=== PATIENT | female | born 1990 | race Caucasian/White ===

== ENCOUNTER → 2016-04-22 | Outpatient (CLI) | payer OTHER ==
[2016-04-22 15:57] LABS: ALT/SGPT 19 U/L (12-78); BLOOD UREA NITROGEN 13 mg/dl (7-18); BUN/CREATININE RATIO 16.3 (10-20); CALCIUM 8.7 mg/dl (8.5-10.1); CARBON DIOXIDE 23 mmol/L (21-32); CHLORIDE 100 mmol/L (98-107); CHOLESTEROL 220 mg/dl (0-200); CREATININE 0.81 mg/dl (0.60-1.20); GLUCOSE 277 mg/dl (70-99); POTASSIUM 4.3 mmol/L (3.5-5.1); SODIUM 135 mmol/L (136-145)
[2016-04-22 16:08] LABS: ALB/GLOB RATIO 0.8 (0.9-2); ALKALINE PHOSPHATASE 87 U/L (45-117); AST/SGOT 15 U/L (15-37); CHOLESTEROL/HDL RATIO 3.2; HDL CHOLESTEROL 68 mg/dl; LDL CHOLESTEROL CALCULATED 125 mg/dl; TRIGLYCERIDES 135 mg/dl (0-150); VERY LOW DENSITY LIPOPROT CALC 27 mg/dl
[2016-04-22 16:57] LABS: RATIO 131.7 mcg/mg (0-30.0)
[2016-04-23 06:27] LABS: ESTIMATED AVERAGE GLUCOSE 286 mg/dl; HA1C FLAG Normal (Normal)
== END | disposition home or self-care (01) ==
LOC: C.LAB1850 14:22
PROVIDERS: ATTEND Internal Medicine Endocrinology, Diabetes & Metabolism
DX: E03.9 Hypothyroidism, unspecified (principal); E06.3 Autoimmune thyroiditis; R80.9 Proteinuria, unspecified; F41.8 Other specified anxiety disorders; E55.9 Vitamin D deficiency, unspecified; E10.21 Type 1 diabetes mellitus with diabetic nephropathy; G47.00 Insomnia, unspecified; F50.9 Eating disorder, unspecified; E10.9 Type 1 diabetes mellitus without complications

== ENCOUNTER → 2016-08-09 | Outpatient (CLI) | payer OTHER ==
[2016-08-09 14:56] LABS: ESTIMATED AVERAGE GLUCOSE 301 mg/dl; HA1C FLAG Normal (Normal)
[2016-08-14 20:53] LABS: IGA SERUM 292 mg/dL (81-463); TIS TRANS IGA 2 U/mL (<4)
== END | disposition home or self-care (01) ==
LOC: C.LAB1850 11:50
PROVIDERS: ATTEND Internal Medicine Endocrinology, Diabetes & Metabolism
DX: E03.9 Hypothyroidism, unspecified (principal); E06.3 Autoimmune thyroiditis; R80.9 Proteinuria, unspecified; F41.8 Other specified anxiety disorders; E55.9 Vitamin D deficiency, unspecified; E10.21 Type 1 diabetes mellitus with diabetic nephropathy; G47.00 Insomnia, unspecified; F50.9 Eating disorder, unspecified

== ENCOUNTER → 2016-10-21 | Outpatient (CLI) | payer OTHER ==
[2016-10-22 06:52] LABS: ESTIMATED AVERAGE GLUCOSE 309 mg/dl; HA1C FLAG Normal (Normal)
== END | disposition home or self-care (01) ==
LOC: C.LAB1850 14:38
PROVIDERS: ATTEND Internal Medicine Endocrinology, Diabetes & Metabolism
DX: E03.9 Hypothyroidism, unspecified (principal); E55.9 Vitamin D deficiency, unspecified; E10.9 Type 1 diabetes mellitus without complications

== ENCOUNTER → 2017-04-07 | Outpatient (CLI) | payer OTHER ==
[2017-04-07 17:02] LABS: ALBUMIN 3.2 gm/dl (3.4-5.0); ALT/SGPT 49 U/L (12-78); BLOOD UREA NITROGEN 8 mg/dl (7-18); CALCIUM 8.3 mg/dl (8.5-10.1); CARBON DIOXIDE 27 mmol/L (21-32); CHOLESTEROL 155 mg/dl (0-200); CREATININE 0.83 mg/dl (0.60-1.20); GLUCOSE 165 mg/dl (70-99); POTASSIUM 4.3 mmol/L (3.5-5.1); SODIUM 138 mmol/L (136-145)
[2017-04-07 17:11] LABS: CREATININE RANDOM URINE 41.7 mg/dl
[2017-04-07 17:12] LABS: ALKALINE PHOSPHATASE 89 U/L (45-117); AST/SGOT 58 U/L (15-37); LDL CHOLESTEROL CALCULATED 61 mg/dl; TOTAL PROTEIN 7.2 gm/dl (6.4-8.2)
[2017-04-08 05:42] LABS: HEMOGLOBIN A1C 12.3 % (4.5-5.6)
== END | disposition home or self-care (01) ==
LOC: C.LAB1850 14:48
PROVIDERS: ATTEND Internal Medicine Endocrinology, Diabetes & Metabolism
DX: E03.9 Hypothyroidism, unspecified (principal); E06.3 Autoimmune thyroiditis; R80.9 Proteinuria, unspecified; F41.8 Other specified anxiety disorders; E55.9 Vitamin D deficiency, unspecified; E10.21 Type 1 diabetes mellitus with diabetic nephropathy; G47.00 Insomnia, unspecified; F50.9 Eating disorder, unspecified; E10.65 Type 1 diabetes mellitus with hyperglycemia; E10.3299 Type 1 diabetes mellitus with mild nonproliferative diabetic retinopathy without macular edema, unspecified eye

== ENCOUNTER → 2017-05-30 | Outpatient (CLI) | payer OTHER | END | disposition home or self-care (01) | LOC: C.LAB1850 16:27 | PROVIDERS: ATTEND Internal Medicine Endocrinology, Diabetes & Metabolism | DX: E03.9 Hypothyroidism, unspecified (principal); E55.9 Vitamin D deficiency, unspecified; E10.8 Type 1 diabetes mellitus with unspecified complications ==

== ENCOUNTER 2024-11-13 07:14 | Observation (INO) ==
--- NOTE | 2024-11-13 07:34 | Emergency Department Note ---
Impression & Plan DKA (diabetic ketoacidosis), Dehydration, Leukocytosis ED Provider Note NAME: HARLEY SOMERS AGE: 34 SEX: F : 1990 ARRIVES VIA: Ambulance INFORMANT: [Patient][EMS] ED PROVIDER(S): [Gaurav Macdonald MD] CHIEF COMPLAINT: Hyperglycemia HISTORY OF PRESENT ILLNESS: The patient is a 34-year-old female who presents to the ER with high sugar. She has a CMG monitor as well as an insulin pump. The patient states that she was feeling fine until around 10 PM yesterday when she began to notice some back and shoulder pain. She began feeling thirsty and noticed some increased urination. She states that all of these complaints are typical signs of a high blood sugar. Her sugar was recording at over 500. The patient did change out her insulin pump needle 2-3 times overnight but it has made no difference. She has tried to compensate with extra insulin, nothing has changed. She feels extremely thirsty. She believes she may be in early DKA. No fever, no cough or congestion. No abdominal pain. She did vomit once and feels nauseated. No diarrhea. No urinary complaints other than the frequency. PMHx/PSHx/Social Hx: See Below PHYSICAL EXAM: GENERAL: Patient is in no acute distress. Face is flushed. HEENT: No acute trauma, normocephalic atraumatic, mucous membranes markedly dry, no nasal congestion. NECK: No stridor, no adenopathy, no meningismus, trachea is midline. LUNGS: Clear to auscultation bilaterally, no wheeze, no rhonchi, breath sounds equal. HEART: Without murmurs gallops or rubs, regular rate and rhythm. ABDOMEN: Soft, nontender, no peritonitis. EXTREMITIES: No cyanosis, full range of motion of all the joints without pain or difficulty. NEUROLOGIC: Oriented x 3, no acute motor or sensory deficits, no focal weakness. SKIN: No jaundice, no diaphoresis. DIFFERENTIAL DIAGNOSIS: Dehydration, electrolyte imbalance, DKA, UTI, among others. EMERGENCY DEPARTMENT PROCEDURES: MEDICAL DECISION MAKING: There is a moderate leukocytosis, this certainly could be consistent with infection or just the stress of her current presentation. There is a normal hemoglobin and platelet count. No bandemia. VBG does show acidosis. There was no CO2 retention. Renal panel testing shows hyperglycemia as well as acidosis. Sodium was low. Bilirubin was mildly elevated although the remaining liver enzymes were unremarkable. TSH was high but the T4 was normal. testing was negative. Urinalysis shows glucose and ketones, no infection. Chest x-ray does not show findings of pneumonia. ECG shows a sinus rhythm, no acute ischemia. On exam, the patient was quite dehydrated. At times, she was borderline hypotensive. She was not febrile, she was doing well maintaining her airway. She was mentating well. The patient received IV saline, 2 L. She was eventually placed on an insulin drip. She received IV Zofran for nausea, IV morphine for pain, she was given IV Toradol for pain, IV Tylenol for pain. Patient is in diabetic ketoacidosis, the cause for the DKA though is unclear. No source for infection has been found. Certainly, there may have been some malfunction of her equipment leading to the high sugar. For now, admission, observation, further IV hydration as well as IV insulin therapy is warranted. I spoke with the patient and case management, the on-call hospitalist was consulted. Prior/Outside records/notes reviewed: Today's EMS notes describing her presentation and transport to this hospital. ECG per my interpretation: Indication was electrolyte imbalance. The ECG shows a normal sinus rhythm with a rate of 81. There is no ST elevation, no PVCs. There is some nonspecific ST change. QTc is 432. Continuous Cardiac Monitoring per my interpretation: An order was placed for continuous cardiac monitoring. The monitor shows a rate of 88 with normal sinus rhythm. Imaging/x-ray results per my interpretation: Chest x-ray does not show CHF or pneumonia. Chronic Medical/Social conditions affecting care: History of diabetes. Care/Management discussed with: Case management, the on-call hospitalist. Level of care consideration(s): After review of the information above and other included data: --I believe the patient requires escalation of care to admission Critical Care Note: I have personally spent 47 minutes of critical care time in the direct management of this patient. This includes bedside care, interpretation of diagnostic studies, and testing, discussion with consultants, patient, and family members, and other required patient management activities. This 47 minutes is in excess of all separately billable procedures. DISPOSITION: Admission Past Med/Surg History Problem List (Updated 11/13/24 @ 15:16 by Gaurav Macdonald MD) Leukocytosis (Acute) Dehydration (Acute) DKA (diabetic ketoacidosis) (Acute) Leukocytosis Back pain Tinea versicolor Situational stress Depression with anxiety Diabetes type 1, controlled Dyslipidemia Dysphagia Abdominal pain Diarrhea Gastroparesis Situational stress Dysesthesia Diabetic peripheral neuropathy associated with type 1 diabetes mellitus Proliferative diabetic retinopathy associated with type 1 diabetes mellitus Hypothyroidism (Acute) Vitamin D deficiency (Acute) Medical History Low iron Hx iron infusion History of UTI severe Jan 2023 IBS (irritable bowel syndrome) PTSD (post-traumatic stress disorder) Asthma flared by damp weather History of diabetic ketoacidosis History of smoking Surgical History History of esophagogastroduodenoscopy (EGD) with dilation. 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 Had to go up both groins, plan was only for one during procedure and heart rate went up to 250. Unsure further details. S/P eye surgery multiple - both eyes. S/P section Hx of cholecystectomy Family History Brother Diabetes Father Diabetes Myocardial infarction Mother Breast cancer Denies family history of Ovarian cancer Prostate cancer Colorectal cancer Social History Smoking Status: Current every day smoker Tobacco Type: Cigarettes Age Started Using Tobacco: 19; Age Quit Using Tobacco: 28; packs per day: 0; Cigarettes Per Day: 5 cigs per day/advised npo; Second Hand Exposure: No; Do You Dip or Chew Tobacco: No; Hx Alcohol Use: No Hx Substance Use: No Preferred Language: Bengali Communication Ability: Effective Visual Impairment: Limited Hearing Ability: Normal Brake Lining Curer Required: No Beliefs That Will Affect Care: None marital status: Single Current Living Situation: Family Current Living Situation Comment: daughter and puppy current occupational status: unemployed How many Children do You have: 1 Feels Safe at Home: Yes Childhood Exposure to Second-Hand Smoke: No Diet: regular Dental Care, Regularly: No Physical Activity Frequency: Daily Seatbelt Use: sometimes Sunscreen Use: Yes Assistive Devices: Glasses Allergies Allergies Allergy/AdvReac Type Severity Reaction Status Date / Time strawberry Allergy Unknown break out Verified 11/03/24 11:00 in hives Sulfa (Sulfonamide AdvReac Severe n/v - Verified 11/03/24 11:00 Antibiotics) ended up in the icu. amoxicillin AdvReac Unknown n/v. Verified 11/03/24 11:00 Home Meds Home Medications Medication Instructions Recorded Confirmed brimonidine 0.2 % eye drops 1 drp ophthalmic (eye) HS PRN eye 12/09/22 11/13/24 pressure timolol maleate 0.5 % eye drops 1 drp ophthalmic (eye) DAILY 12/09/22 11/13/24 glucagon HCl 1 mg solution for 0 mg subcut UD PRN hypoglycemia 02/07/23 11/13/24 injection (Glucagon (HCl) Emergency Kit) levothyroxine 300 mcg tablet 375 mcg PO DAILY 07/30/24 11/13/24 citalopram 20 mg tablet 20 mg PO DAILY 11/13/24 11/13/24 selenium sulfide 1 % shampoo 1 applic topical DAILY PRN Itching 11/13/24 11/13/24 (Selsun Blue) Previous Rx's Medication Instructions Recorded Dexcom G6 Fountain Operator #1 ea 12/14/20 (blood-glucose,aluminum siding mechanic,cont) blood sugar diagnostic (Contour #100 ea 02/06/22 Next Test Strips) cholecalciferol (vitamin D3) 1,250 50,000 unit PO DAILY #30 tabs 01/31/23 mcg (50,000 unit) tablet acetone (urine) test (Ketostix #25 ea 07/25/23 strips) ferrous sulfate 325 mg (65 mg 325 mg PO DAILY #30 tabs 11/11/23 iron) tablet Dexcom G6 Sensor (blood-glucose #9 ea 03/02/24 sensor) Dexcom G6 Transmitter #1 ea 03/02/24 (blood-glucose transmitter) insulin lispro 100 unit/mL 100 unit continuous subcutaneous 04/22/24 subcutaneous solution infusion DAILY #90 mL Results & Data (ED) Vital Signs Vital Signs - 24 hr 11/13/24 07:28 11/13/24 07:28 11/13/24 07:37 Temperature 36.5 C 36.5 C Temperature Source Oral Oral Pulse Rate 82 82 Pulse Rate [Apical] 82 Pulse Rate from SpO2 Sensor Pulse Rhythm Regular Pulse Rhythm [Apical] Respiratory Rate 19 17 19 Respiratory Effort / Characteristics Non-Labored Spontaneous Non-Labored Spontaneous Respiratory Depth Normal Normal Respiratory Pattern Regular Blood Pressure 93/54 L Blood Pressure [Right Arm] 93/54 L Blood Pressure Mean 67 Blood Pressure Mean [Right Arm] 67 Blood Pressure Position Semi-fowlers Blood Pressure Position [Right Arm] Semi-fowlers Pulse Oximetry 100 100 100 Oxygen Delivery Method Room Air Room Air Room Air Sepsis Recent Fever Within 48 Hours No Sepsis New/Unexplained Change in Mental Status N/A Sepsis Action Taken by Nursing No Action Required 11/13/24 08:03 11/13/24 08:13 11/13/24 08:18 Temperature Temperature Source Pulse Rate 93 H 102 H 93 H Pulse Rate [Apical] Pulse Rate from SpO2 Sensor 92 H Pulse Rhythm Pulse Rhythm [Apical] Respiratory Rate 16 19 Respiratory Effort / Characteristics Respiratory Depth Respiratory Pattern Blood Pressure Blood Pressure [Right Arm] Blood Pressure Mean Blood Pressure Mean [Right Arm] Blood Pressure Position Blood Pressure Position [Right Arm] Pulse Oximetry 100 Oxygen Delivery Method Sepsis Recent Fever Within 48 Hours Sepsis New/Unexplained Change in Mental Status Sepsis Action Taken by Nursing 11/13/24 08:20 11/13/24 08:20 11/13/24 08:20 Temperature Temperature Source Pulse Rate Pulse Rate [Apical] Pulse Rate from SpO2 Sensor Pulse Rhythm Pulse Rhythm [Apical] Respiratory Rate Respiratory Effort / Characteristics Respiratory Depth Respiratory Pattern Blood Pressure 112/70 112/70 112/70 Blood Pressure [Right Arm] Blood Pressure Mean 83 83 83 Blood Pressure Mean [Right Arm] Blood Pressure Position Blood Pressure Position [Right Arm] Pulse Oximetry Oxygen Delivery Method Sepsis Recent Fever Within 48 Hours Sepsis New/Unexplained Change in Mental Status Sepsis Action Taken by Nursing 11/13/24 08:20 11/13/24 08:21 11/13/24 08:33 Temperature Temperature Source Pulse Rate 87 109 H Pulse Rate [Apical] Pulse Rate from SpO2 Sensor Pulse Rhythm Pulse Rhythm [Apical] Respiratory Rate 23 16 Respiratory Effort / Characteristics Respiratory Depth Respiratory Pattern Blood Pressure 112/70 Blood Pressure [Right Arm] Blood Pressure Mean 83 Blood Pressure Mean [Right Arm] Blood Pressure Position Blood Pressure Position [Right Arm] Pulse Oximetry 100 Oxygen Delivery Method Sepsis Recent Fever Within 48 Hours Sepsis New/Unexplained Change in Mental Status Sepsis Action Taken by Nursing 11/13/24 09:03 11/13/24 09:21 11/13/24 09:33 Temperature Temperature Source Pulse Rate 85 80 Pulse Rate [Apical] 83 Pulse Rate from SpO2 Sensor 85 80 Pulse Rhythm Pulse Rhythm [Apical] Regular Respiratory Rate 21 18 23 Respiratory Effort / Characteristics Non-Labored Spontaneous Respiratory Depth Normal Respiratory Pattern Regular Blood Pressure 93/49 L 102/42 L Blood Pressure [Right Arm] 95/47 L Blood Pressure Mean 63 62 Blood Pressure Mean [Right Arm] 63 Blood Pressure Position Blood Pressure Position [Right Arm] Pulse Oximetry 100 92 100 Oxygen Delivery Method Room Air Sepsis Recent Fever Within 48 Hours Sepsis New/Unexplained Change in Mental Status Sepsis Action Taken by [facility] Medications Current Medication List: was personally reviewed by me Laboratory Data Attestation: I reviewed the patient's lab results. 11/13/24 07:28 11/13/24 12:50 Lab Results 11/13/24 11/13/24 11/13/24 Range/Units 07:20 07:28 08:38 WBC 16.98 H (4.8-10.8) K/ul RBC 4.88 (4.20-5.40) M/uL Hgb 14.1 (12.0-16.0) g/dl Hct 42.2 (37.0-47.0) % MCV 86.5 (80.0-100.0) fL MCH 28.9 (25.0-34.0) pg MCHC 33.4 (32.0-36.0) g/dL RDW Std Deviation 39.6 (36.4-46.3) fL RDW Coeff of Josep 12.6 (11.5-14.5) % Plt Count 289 (130-400) K/uL MPV 10.8 (9.4-12.4) fL Immature Gran % (Auto) 0.7 % Neut % (Auto) 76.8 % Lymph % (Auto) 14.5 % [place] % (Auto) 6.3 % Eos % (Auto) 0.8 % Baso % (Auto) 0.9 % Neut # (Auto) 13.04 H (1.40-6.50) K/uL Lymph # (Auto) 2.46 (1.20-3.40) K/uL [place] # (Auto) 1.07 H (0.11-0.59) K/uL Eos # (Auto) 0.14 (0.00-0.50) K/uL Baso # (Auto) 0.15 (0.00-0.20) K/uL Immature Gran # (Auto) 0.12 (0.01-0.20) K/uL VBG pH 7.22 L (7.36-7.41) VBG pCO2 29 L (38-50) mmHg VBG pO2 40 mmHg VBG HCO3 12 mmol/L VBG O2 Saturation 60.6 % VBG Base Excess -14.4 mEq/L Sodium 127 L (136-145) mmol/L Potassium 4.7 (3.5-5.1) mmol/L Chloride 92 L (98-107) mmol/L Carbon Dioxide 14 L (21-32) mmol/L Anion Gap 21 H (3-11) BUN 22 (6-23) mg/dl Creatinine 1.13 (0.6-1.2) mg/dl Est Cr Clr Drug Dosing 68.3 ml/min eGFR 65.88 BUN/Creatinine Ratio 19.5 (10-20) Glucose 540 H* (70-99(Fasting)) mg/dl POC Glucose 529 H* 488 H* (70-99) mg/dl Calcium 9.5 (8.6-10.3) mg/dl Magnesium 1.9 (1.7-2.4) mg/dl Total Bilirubin 1.5 H (0.2-1.0) mg/dl AST 12 L (13-39) U/L ALT 10 (7-52) U/L Alkaline Phosphatase 96 (34-104) U/L Total Protein 7.7 (6.0-8.3) gm/dl Albumin 4.1 (3.4-5.0) gm/dl Globulin 3.6 (2.5-4.0) gm/dl Albumin/Globulin Ratio 1.1 (0.9-2) TSH 7.022 H (0.300-4.500) uIu/ml Free T4 0.71 (0.61-1.60) ng/dl HCG, Qual Negative (Negative) 11/13/24 Range/Units 09:09 WBC (4.8-10.8) K/ul RBC (4.20-5.40) M/uL Hgb (12.0-16.0) g/dl Hct (37.0-47.0) % MCV (80.0-100.0) fL MCH (25.0-34.0) pg MCHC (32.0-36.0) g/dL RDW Std Deviation (36.4-46.3) fL RDW Coeff of Josep (11.5-14.5) % Plt Count (130-400) K/uL MPV (9.4-12.4) fL Immature Gran % (Auto) % Neut % (Auto) % Lymph % (Auto) % [place] % (Auto) % Eos % (Auto) % Baso % (Auto) % Neut # (Auto) (1.40-6.50) K/uL Lymph # (Auto) (1.20-3.40) K/uL [place] # (Auto) (0.11-0.59) K/uL Eos # (Auto) (0.00-0.50) K/uL Baso # (Auto) (0.00-0.20) K/uL Immature Gran # (Auto) (0.01-0.20) K/uL VBG pH (7.36-7.41) VBG pCO2 (38-50) mmHg VBG pO2 mmHg VBG HCO3 mmol/L VBG O2 Saturation % VBG Base Excess mEq/L Sodium (136-145) mmol/L Potassium (3.5-5.1) mmol/L Chloride (98-107) mmol/L Carbon Dioxide (21-32) mmol/L Anion Gap (3-11) BUN (6-23) mg/dl Creatinine (0.6-1.2) mg/dl Est Cr Clr Drug Dosing ml/min eGFR BUN/Creatinine Ratio (10-20) Glucose (70-99(Fasting)) mg/dl POC Glucose 471 H* (70-99) mg/dl Calcium (8.6-10.3) mg/dl Magnesium (1.7-2.4) mg/dl Total Bilirubin (0.2-1.0) mg/dl AST (13-39) U/L ALT (7-52) U/L Alkaline Phosphatase (34-104) U/L Total Protein (6.0-8.3) gm/dl Albumin (3.4-5.0) gm/dl Globulin (2.5-4.0) gm/dl Albumin/Globulin Ratio (0.9-2) TSH (0.300-4.500) uIu/ml Free T4 (0.61-1.60) ng/dl HCG, Qual (Negative) Administered Medications Insulin Human Regular 250 (units/ Sodium Chloride) 250 mls @ 3.4 mls/hr IV .Q24H [facility]; Protocol Stop: 12/13/24 08:59 Last Titration: 11/13/24 13:30 Dose: 3.4 units/hr, 3.4 mls/hr Documented By: MIKAL Co-signed By: NANNETTE Titration: 11/13/24 12:58 Dose: 4.3 units/hr, 4.3 mls/hr Documented By: MIKAL Co-signed By: NANNETTE Titration: 11/13/24 12:28 Dose: 0 units/hr, 0 mls/hr Documented By: MIKAL Co-signed By: NANNETTE Titration: 11/13/24 11:29 Dose: 7.1 units/hr, 7.1 mls/hr Documented By: MIKAL Co-signed By: NANNETTE Titration: 11/13/24 10:29 Dose: 8.9 units/hr, 8.9 mls/hr Documented By: MIKAL Co-signed By: NANNETTE Admin: 11/13/24 09:11 Dose: 7.4 units/hr, 7.4 mls/hr Documented By: BEATRIZ Co-signed By: WALLY Potassium Chloride 20 meq/ (Dextrose/Sodium Chloride) 1,010 mls @ 125 mls/hr IV .Q8H5M [facility] Stop: 11/16/24 13:29 Last Admin: 11/13/24 14:35 Dose: 125 mls/hr Documented By: MIKAL Morphine Sulfate (Morphine Sulfate 2 Mg/Ml Carp) 2 mg IV Q15M PRN PRN Reason: Pain Stop: 11/27/24 08:59 Last Admin: 11/13/24 09:20 Dose: 2 mg Documented By: ECS Discontinued Medications Sodium Chloride (Nss) 1,000 mls @ 999 mls/hr IV .Q1H1M ONE Stop: 11/13/24 08:31 Last Infusion: 11/13/24 09:16 Dose: Infused Documented By: Admin: 11/13/24 07:44 Dose: 999 mls/hr Documented By: LORIN Sodium Chloride (Nss) 1,000 mls @ 999 mls/hr IV .Q1H1M ONE Stop: 11/13/24 08:31 Last Infusion: 11/13/24 09:16 Dose: Infused Documented By: Admin: 11/13/24 07:44 Dose: 999 mls/hr Documented By: LOIRN Acetaminophen (Ofirmev) 1,000 mg in 100 mls @ 400 mls/hr IV NOW STA Stop: 11/13/24 08:30 Last Infusion: 11/13/24 09:02 Dose: Infused Documented By: Admin: 11/13/24 08:23 Dose: 400 mls/hr Documented By: BEATRIZ Potassium Chloride/Sodium Chloride (Normal Saline W/20 Meq Kcl) 20 meq in 1,000 mls @ 250 mls/hr IV .Q4H MARILY Stop: 11/16/24 12:59 Last Infusion: 11/13/24 14:35 Dose: Infused Documented By: Admin: 11/13/24 13:06 Dose: 250 mls/hr Documented By: MIKAL Insulin Human Regular (Novolin-R Bolus From Bag) 7.4 units IV ONE ONE Stop: 11/13/24 08:31 Last Admin: 11/13/24 09:15 Dose: 7.4 units Documented By: BEATRIZ Co-signed By: ECS Insulin Pump (Dc Home Insulin Pump) 1 each N/A NOW STA Stop: 11/13/24 08:24 Last Admin: 11/13/24 08:30 Dose: 1 each Documented By: BEATRIZ Ketorolac Tromethamine (Ketorolac Tromethamine 15 Mg/Ml Vial) 10 mg IV NOW ONE Stop: 11/13/24 08:16 Last Admin: 11/13/24 08:23 Dose: 10 mg Documented By: BEATRIZ Miscellaneous (Stat Iv Infusion Titration Per Protocol) 1 each N/A NOW STA Stop: 11/13/24 08:24 Last Admin: 11/13/24 09:16 Dose: Not Given Documented By: BEATRIZ Morphine Sulfate (Morphine Sulfate 2 Mg/Ml Carp) 2 mg IV NOW STA Stop: 11/13/24 08:16 Last Admin: 11/13/24 08:23 Dose: 2 mg Documented By: BEATRIZ Ondansetron HCl (Ondansetron Inj 2 Mg/Ml 2 Ml Vial) 4 mg IV NOW STA Stop: 11/13/24 07:32 Last Admin: 11/13/24 07:44 Dose: 4 mg Documented By: LORIN Imaging Data Radiologist's Impression: Chest X-Ray 11/13/24 07:31 Clinical History: Weakness Technique: A frontal view of the chest was obtained Comparison is made to the prior examination dated 01/22/2023 Findings: There are no definite pulmonary infiltrates. The heart size is within normal limits. No pleural effusion or pneumothorax is seen. There is no definite pulmonary nodule. No fracture is noted. No foreign body is seen Impression: No active disease Electronically signed by Marques Valenzuela 11-13-2024 08:20 AM Discharge Plan Visit Data Chief Complaint: Hyperglycemia Stated Complaint: HYPERGLYCEMIA ED Provider: Gaurav Macdonald Discharge Problem: DKA (diabetic ketoacidosis), Dehydration, Leukocytosis Patient Disposition: Admitted As Inpatient Condition: Serious Discharge Instructions Interventions: ED Discharge Assessment Last Done: 11/13/24 12:36 Discharge Problem: DKA (diabetic ketoacidosis) Qualifiers: Diabetes mellitus type: type 1 Diabetes mellitus complication detail: without coma Qualified Code(s): E10.10 - Type 1 diabetes mellitus with ketoacidosis without coma Leukocytosis Qualifiers: Leukocytosis type: unspecified Qualified Code(s): D72.829 - Elevated white blood cell count, unspecified
[2024-11-13 07:37] VITALS: TEMP 97.7
[2024-11-13 07:38] LABS: Base Excess VBG -14.4 mEq/L; HCO3 VBG 12 mmol/L; Oxygen Saturation VBG 60.6 %; PCO2 VBG 29 mmHg (38-50); PO2 VBG 40 mmHg; pH VBG 7.22 (7.36-7.41)
[2024-11-13 07:42] LABS: Hematocrit (blood only) 42.2 % (37.0-47.0); Hemoglobin 14.1 g/dl (12.0-16.0); Immature Granulocytes # (auto) 0.12 K/uL (0.01-0.20); Immature Granulocytes % (auto) 0.7 %; Mean Corpuscular Hemoglobin 28.9 pg (25.0-34.0); Mean Corpuscular Volume 86.5 fL (80.0-100.0); Platelet Count 289 K/uL (130-400); RDW Standard Deviation 39.6 fL (36.4-46.3); Red Blood Count 4.88 M/uL (4.20-5.40); White Blood Count 16.98 K/ul (4.8-10.8)
[2024-11-13] MEDS: SODIUM CHLORIDE 0.9% 1,000 ML IV ONE ×2 (07:44)
[2024-11-13] MEDS: ONDANSETRON INJ 2 MG/ML 2 ML VIAL IV STA (07:44)
[2024-11-13 07:57] LABS: Pregnancy Test, Serum Negative (Negative)
[2024-11-13 08:05] LABS: Alanine Aminotransferase 10.0 U/L (7-52); Albumin Globulin Ratio 1.1 (0.9-2); Alkaline Phosphatase 96.0 U/L (34-104); Anion Gap 21.0 (3-11); Bilirubin,Total 1.5 mg/dl (0.2-1.0); Blood Urea Nitrogen 22.0 mg/dl (6-23); Calcium 9.5 mg/dl (8.6-10.3); Carbon Dioxide 14.0 mmol/L (21-32); Chloride 92.0 mmol/L (98-107); Creatinine Clr Calc Pharmacy 68.3 ml/min; Globulin 3.6 gm/dl (2.5-4.0); Glucose 540.0 mg/dl (70-99(Fasting)); Magnesium 1.9 mg/dl (1.7-2.4); Potassium 4.7 mmol/L (3.5-5.1); Sodium 127.0 mmol/L (136-145); Total Protein 7.7 gm/dl (6.0-8.3)
[2024-11-13 08:16] LABS: Thyroid Stimulating Hormone 7.022 uIu/ml (0.300-4.500)
--- NOTE | 2024-11-13 08:20 | XRay Report ---
Clinical History: Weakness Technique: A frontal view of the chest was obtained Comparison is made to the prior examination dated 01/22/2023 Findings: There are no definite pulmonary infiltrates. The heart size is within normal limits. No pleural effusion or pneumothorax is seen. There is no definite pulmonary nodule. No fracture is noted. No foreign body is seen Impression: No active disease Electronically signed by Marques Valenzuela 11-13-2024 08:20 AM
[2024-11-13] MEDS ORDERED: GLUCAGON FOR INJ 1 MG VIAL SQ PRN (08:23)
[2024-11-13] MEDS: MoRPHine SULFATE 2 MG/ML CARP IV STA (08:23)
[2024-11-13] MEDS: KETOROLAC TROMETHAMINE 15 MG/ML VIAL IV ONE (08:23)
[2024-11-13] MEDS ORDERED: CARBOHYDRATES FOR HYPOGLYCEMIA PO PRN (08:23)
[2024-11-13] MEDS: ACETAMINOPHEN 1,000 MG/100 ML VIAL IV STA (08:23)
[2024-11-13] MEDS ORDERED: GLUCOSE 40% GEL 15 GM TUBE PO PRN (08:23)
[2024-11-13] MEDS ORDERED: GLUCOSE 10 TAB/TUBE PO PRN (08:23)
[2024-11-13] MEDS: DC HOME INSULIN PUMP STA (08:30)
[2024-11-13] MEDS ORDERED: INSULIN REGULAR 250 UNITS in SODIUM CHLORIDE 0.9% 247.5 ML IV SCH (08:30)
[2024-11-13] MEDS: INSULIN REGULAR 250 UNITS in SODIUM CHLORIDE 0.9% 247.5 ML IV SCH (09:11)
[2024-11-13] MEDS: NovoLIN-R BOLUS FROM BAG IV ONE (09:15)
[2024-11-13] MEDS: STAT IV Infusion **Titration per Protocol STA (09:16)
[2024-11-13] MEDS: MoRPHine SULFATE 2 MG/ML CARP IV PRN (09:20)
--- NOTE | 2024-11-13 10:04 | History & Physical Report ---
Date of Service November 13, 2024 Assessment & Plan (1) Diabetes type 1, controlled: (2) Hypothyroidism: (3) Back pain: (4) DKA (diabetic ketoacidosis): (5) Leukocytosis: Plan Patient is a 34 yo F with history of T1DM who presents into the ED for signs of DKA. Patient reports that she was fine last night until around 10pm last night when she got back and shoulder pain. Patient says the back and shoulder pain is an early sign that her blood sugar is high. She was also feeling thirsty with an increase in urination. Patient said she changed the insulin pump needle 2-3x overnight and tried to give herself more insulin, to no effect. Patient threw up 1 time last night but hasn't since. At time of visit (11/13), patient still has the pain in the back of her neck, shoulder blades, and down her entire back. She rates the pain an 8/10. Patient said the only thing she ate last night was cottage cheese. She said she doesn't feel hungry, but has always had that lack of appetite. Patient sees Dr. Pham for her T1DM. Patient admits to still urinating a lot, and that her urine is cloudy/yellow. Patient denies chest pain, abdominal pain, fever, and diarrhea. DKA/T1DM -11/13 glucose is 540 -11/13 VBG is 7.22 -Insulin bolus administered in ER -Insulin drip 7.4 units/hr with NSS. -Once glucose goal is <250 then reduce IV insulin to 0.05units/kg/hr -NSS 250ml/hr with 20mEq K per liter -Serum glucose range is 150-200 -Check BMP, venous pH, phosphorus, glucose every 4 hours -Ordered CBC w/ diff and A1c for the AM -Hypoglycemia protocol also in place * dextrose 50% 25-50mL * Glucagon 1mg SQ * Carbohydrates 15-30mg * Glucose chew table tablet (4-8 tabs) Hypothyroidism -Continue home levothyroxine 375mg Back Pain -Patient has general back pain, back of the neck and shoulder blades -ER gave morphine 2mg Q15 minutes PRN. -Will give tylenol 650mg PRN for mild pain -Will continue Q15m morphine for severe pain. Leukocytosis -WBC is 16.98. But most likely due to the stress of the DKA -Will continue to monitor History of Present Illness Chief Complaint: DKA Primary Care Provider: MITCHELL Valdez Patient is a 34 yo F who presents into the ED for signs of DKA. Patient reports that she was fine last night until around 10pm last night when she got back and shoulder pain. Patient says the back and shoulder pain is an early sign that her blood sugar is high. She was also feeling thirsty with an increase in urination. Patient said she changed the insulin pump needle 2-3x overnight and tried to give herself more insulin, to no effect. Patient threw up 1 time last night but hasnt since. At time of visit patient still has the pain in the back of her neck, shoulder blades, and down her entire back. She rates the pain an 8/10. Patient said the only thing she ate last night was cottage cheese. She said she doesnt feel hungry, but has always had that lack of appetite. Patient admits to still peeing a lot, and that her urine is cloudy/yellow. Patient denies chest pain, abdominal pain, fever, and diarrhea. Allergies Allergy/AdvReac Type Severity Reaction Status Date / Time strawberry Allergy Unknown break out Verified 11/03/24 11:00 in hives Sulfa (Sulfonamide AdvReac Severe n/v - Verified 11/03/24 11:00 Antibiotics) ended up in the icu. amoxicillin AdvReac Unknown n/v. Verified 11/03/24 11:00 Home Medications Medication Instructions Recorded Confirmed Type Dexcom G6 Barrel Washer #1 ea 12/14/20 11/03/24 Rx (blood-glucose,store receiver,cont) blood sugar diagnostic (Contour #100 ea 02/06/22 11/03/24 Rx Next Test Strips) brimonidine 0.2 % eye drops 1 drp ophthalmic (eye) HS PRN eye 12/09/22 11/13/24 History pressure timolol maleate 0.5 % eye drops 1 drp ophthalmic (eye) DAILY 12/09/22 11/13/24 History cholecalciferol (vitamin D3) 1,250 50,000 unit PO DAILY #30 tabs 01/31/23 11/13/24 Rx mcg (50,000 unit) tablet glucagon HCl 1 mg solution for 0 mg subcut UD PRN hypoglycemia 02/07/23 11/13/24 History injection (Glucagon (HCl) Emergency Kit) acetone (urine) test (Ketostix #25 ea 07/25/23 11/03/24 Rx strips) ferrous sulfate 325 mg (65 mg 325 mg PO DAILY #30 tabs 11/11/23 11/13/24 Rx iron) tablet Dexcom G6 Sensor (blood-glucose #9 ea 03/02/24 11/03/24 Rx sensor) Dexcom G6 Transmitter #1 ea 03/02/24 11/03/24 Rx (blood-glucose transmitter) insulin lispro 100 unit/mL 100 unit continuous subcutaneous 04/22/24 11/13/24 Rx subcutaneous solution infusion DAILY #90 mL levothyroxine 300 mcg tablet 375 mcg PO DAILY 07/30/24 11/13/24 History citalopram 20 mg tablet 20 mg PO DAILY 11/13/24 11/13/24 History selenium sulfide 1 % shampoo 1 applic topical DAILY PRN Itching 11/13/24 11/13/24 History (Virginia Hoffmann) Past Med/Surg History Problem List (Updated 11/13/24 @ 15:16 by Gaurav Macdonald MD) Leukocytosis (Acute) Dehydration (Acute) DKA (diabetic ketoacidosis) (Acute) Leukocytosis Back pain Tinea versicolor Situational stress Depression with anxiety Diabetes type 1, controlled Dyslipidemia Dysphagia Abdominal pain Diarrhea Gastroparesis Situational stress Dysesthesia Diabetic peripheral neuropathy associated with type 1 diabetes mellitus Proliferative diabetic retinopathy associated with type 1 diabetes mellitus Hypothyroidism (Acute) Vitamin D deficiency (Acute) Medical History Low iron Hx iron infusion History of UTI severe Jan 2023 IBS (irritable bowel syndrome) PTSD (post-traumatic stress disorder) Asthma flared by damp weather History of diabetic ketoacidosis History of smoking Surgical History History of esophagogastroduodenoscopy (EGD) with dilation. 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 Had to go up both groins, plan was only for one during procedure and heart rate went up to 250. Unsure further details. S/P eye surgery multiple - both eyes. S/P section Hx of cholecystectomy Family History Brother Diabetes Father Diabetes Myocardial infarction Mother Breast cancer Denies family history of Ovarian cancer Prostate cancer Colorectal cancer Social History Smoking Status: Current every day smoker Tobacco Type: Cigarettes Age Started Using Tobacco: 19; Age Quit Using Tobacco: 28; packs per day: 0; Cigarettes Per Day: 5 cigs per day/advised npo; Second Hand Exposure: No; Do You Dip or Chew Tobacco: No; Hx Alcohol Use: No Hx Substance Use: No Preferred Language: Norwegian Communication Ability: Effective Visual Impairment: Limited Hearing Ability: Normal 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 Outside Required: No Beliefs That Will Affect Care: None marital status: Single Current Living Situation: Family Current Living Situation Comment: daughter and puppy current occupational status: unemployed How many Children do You have: 1 Feels Safe at Home: Yes Childhood Exposure to Second-Hand Smoke: No Diet: regular Dental Care, Regularly: No Physical Activity Frequency: Daily Seatbelt Use: sometimes Sunscreen Use: Yes Assistive Devices: Glasses Review of Systems Review of Systems: as per subjective HPI Physical Exam Constitutional: WD/WN, vitals as above Eyes: + anicteric sclerae and EOM intact bilat erally Neck: normal visual inspection Respiratory: normal respiratory effort, lungs clear to auscultation Cardiovascular: Rate/Rhythm: regular rate and regular rhythm Heart Sounds: normal S1 and normal S2; no murmur Extremities: no edema Musculoskeletal: Extremities: extremities normal to inspection Skin: no rashes, warm and dry Neurologic: awake Psychiatric: A+Ox3, euthymic affect Results & Data Results & Data Vital Signs (Past 12 Hours) Vital Signs Temp Pulse Pulse Resp BP BP Pulse Ox 11/13/24 09:21 83 18 95/47 L 92 11/13/24 08:33 109 H 16 100 11/13/24 08:21 87 23 11/13/24 08:20 112/70 11/13/24 08:20 112/70 11/13/24 08:20 112/70 11/13/24 08:20 112/70 11/13/24 08:18 93 H 19 11/13/24 08:13 102 H 11/13/24 08:03 93 H 16 100 11/13/24 07:37 82 19 100 11/13/24 07:28 36.5 C 82 17 93/54 L 100 11/13/24 07:28 36.5 C 82 19 93/54 L 100 O2 Del Method 11/13/24 09:21 Room Air 11/13/24 08:33 11/13/24 08:21 11/13/24 08:20 11/13/24 08:20 11/13/24 08:20 11/13/24 08:20 11/13/24 08:18 11/13/24 08:13 11/13/24 08:03 11/13/24 07:37 Room Air 11/13/24 07:28 Room Air 11/13/24 07:28 Room Air Supervising Physician Co-Signing Physician Notes I personally examined the patient and verified all granger points of history and exam, discussed case, and agree with decision making with Dr Albert Case discussed with resident physicianand by the time I see her, she is already starting to feel dramatically better. Notes she is certain that her insulin site was no longer workinghas no other infectious symptoms, no dysuria, no concerns for anything other than she is feeling pretty confident that her pump site went badleading to hyperglycemialeading to DKA. Vitals noted, in general she is awake and alert pleasant no distress. HEENT normocephalic atraumatic mucous membranes moist. Breathing unlabored no accessory muscle use good effort. Skin without rashes pallor or icterus. Neuro without focal deficits. Type 1 diabetes/DKAappears to have been precipitated by pump malfunction/pump site malfunctionfortunately improving quickly. Continue IV fluids and IV insulins, but given how much better she is feeling and her strong desire to get homeas soon as her gap closes, we can probably get her back on subcu insulin, and if her pump is working well she is eating well and her sugars are reasonable, we might be able to get her home by the end of the day. (4) DKA (diabetic ketoacidosis) Diabetes mellitus complication detail: without coma Diabetes mellitus type: type 1 Qualified Code(s): E10.10 - Type 1 diabetes mellitus with ketoacidosis without coma
[2024-11-13 10:42] LABS: Appearance Urine Clear (Clear); Glucose Urine UA 3+ (Negative)
[2024-11-13] MEDS ORDERED: ONDANSETRON INJ 2 MG/ML 2 ML VIAL IV PRN (12:35)
[2024-11-13] MEDS ORDERED: ACETAMINOPHEN 325 MG TAB PO PRN (12:35)
[2024-11-13] MEDS ORDERED: MELATONIN 3 MG TAB PO PRN (12:35)
[2024-11-13] MEDS ORDERED: POLYETHYLENE (MIRALAX) 17 GM PACK PO PRN (12:35)
[2024-11-13 13:02] LABS: Base Excess VBG -11.9 mEq/L; HCO3 VBG 13 mmol/L; Oxygen Saturation VBG 87.4 %; PCO2 VBG 28 mmHg (38-50); PO2 VBG 55 mmHg; pH VBG 7.28 (7.36-7.41)
[2024-11-13] MEDS: NSS + 20MEQ KCL 20 MEQ/1,000 ML BAG IV SCH (13:06)
[2024-11-13 13:23] LABS: Anion Gap 15.0 (3-11); Blood Urea Nitrogen 26.0 mg/dl (6-23); Calcium 8.6 mg/dl (8.6-10.3); Carbon Dioxide 14.0 mmol/L (21-32); Chloride 102.0 mmol/L (98-107); Creatinine Clr Calc Pharmacy 72.1 ml/min; Glucose 200.0 mg/dl (70-99(Fasting)); Potassium 4.1 mmol/L (3.5-5.1); Sodium 131.0 mmol/L (136-145)
[2024-11-13] MEDS: POTASSIUM CHLORIDE 20 MEQ in D5W AND NSS 1,000 ML IV SCH (14:35)
[2024-11-13] MEDS: DKA GOAL RANGE 150-250 mg/dl ONE (15:40)
[2024-11-13 16:18] LABS: Base Excess VBG -7.4 mEq/L; HCO3 VBG 20 mmol/L; Oxygen Saturation VBG 76.1 %; PCO2 VBG 45 mmHg (38-50); PO2 VBG 48 mmHg; pH VBG 7.25 (7.36-7.41)
[2024-11-13 16:41] LABS: Anion Gap 6.0 (3-11); Blood Urea Nitrogen 24.0 mg/dl (6-23); Calcium 8.2 mg/dl (8.6-10.3); Carbon Dioxide 22.0 mmol/L (21-32); Chloride 104.0 mmol/L (98-107); Creatinine Clr Calc Pharmacy 72.1 ml/min; Glucose 105.0 mg/dl (70-99(Fasting)); Potassium 4.2 mmol/L (3.5-5.1); Sodium 132.0 mmol/L (136-145)
[2024-11-13] MEDS: DEXTROSE 50% 50 ML SYRINGE IV PRN (17:11)
--- NOTE | 2024-11-13 17:20 | Billing Data ---
Date of Service November 13, 2024 Coding Level of Care Code 69560 INT INP/OBS CARE
--- NOTE | 2024-11-13 17:29 | Discharge Summary ---
Date of Service November 13, 2024 Admission HPI Per Admitting Provider Patient is a 34 yo F who presents into the ED for signs of DKA. Patient reports that she was fine last night until around 10pm last night when she got back and shoulder pain. Patient says the back and shoulder pain is an early sign that her blood sugar is high. She was also feeling thirsty with an increase in urination. Patient said she changed the insulin pump needle 2-3x overnight and tried to give herself more insulin, to no effect. Patient threw up 1 time last night but hasnt since. At time of visit patient still has the pain in the back of her neck, shoulder blades, and down her entire back. She rates the pain an 8/10. Patient said the only thing she ate last night was cottage cheese. She said she doesnt feel hungry, but has always had that lack of appetite. Patient admits to still peeing a lot, and that her urine is cloudy/yellow. Patient denies chest pain, abdominal pain, fever, and diarrhea. Admission Exam Per Admitting Provider Physical Exam Constitutional: WD/WN, vitals as above Eyes: + anicteric sclerae and EOM intact bilat erally Neck: normal visual inspection Respiratory: normal respiratory effort, lungs clear to auscultation Cardiovascular: Rate/Rhythm: regular rate and regular rhythm Heart Sounds: normal S1 and normal S2; no murmur Extremities: no edema Musculoskeletal: Extremities: extremities normal to inspection Skin: no rashes, warm and dry Neurologic: awake Psychiatric: A+Ox3, euthymic affect Principal Diagnosis DKA Discharge Exam Constitutional WD/WN, vitals as above Eyes + anicteric sclerae and EOM intact bilaterally Neck normal visual inspection Respiratory normal respiratory effort, lungs clear to auscultation Cardiovascular Rate/Rhythm: regular rate and regular rhythm Heart Sounds: normal S1 and normal S2; no murmur Extremities: no edema Gastrointestinal (Abdomen) Inspection/Auscultation: abdomen normal to inspection Musculoskeletal Extremities: extremities normal to inspection Skin no rashes, warm and dry Neurologic awake Psychiatric A+Ox3, euthymic affect Discharge Data Allergies Allergy/AdvReac Type Severity Reaction Status Date / Time strawberry Allergy Unknown break out Verified 11/03/24 11:00 in hives Sulfa (Sulfonamide AdvReac Severe n/v - Verified 11/03/24 11:00 Antibiotics) ended up in the icu. amoxicillin AdvReac Unknown n/v. Verified 11/03/24 11:00 Consultations 11/13/24 08:35 ED Decision to Admit Stat Hospital Course (1) Diabetes type 1, controlled: (2) Hypothyroidism: (3) Back pain: (4) DKA (diabetic ketoacidosis): (5) Leukocytosis: Plan Patient is a 34 yo F with history of T1DM who presents into the ED for signs of DKA. Patient reports that she was fine last night until around 10pm last night when she got back and shoulder pain. Patient says the back and shoulder pain is an early sign that her blood sugar is high. She was also feeling thirsty with an increase in urination. Patient said she changed the insulin pump needle 2-3x overnight and tried to give herself more insulin, to no effect. Patient threw up 1 time last night but hasn't since. At time of visit (11/13), patient still has the pain in the back of her neck, shoulder blades, and down her entire back. She rated the pain an 8/10. Patient said the only thing she ate last night was cottage cheese. She said she doesn't feel hungry, but has always had that lack of appetite. Patient sees Dr. Pham for her T1DM. Patient admits to still urinating a lot, and that her urine is cloudy/yellow. Patient denied chest pain, abdominal pain, fever, and diarrhea. Patient ate half of her dinner and had a postprandial glucose of 212. Patient is medically stable for discharge. DKA/T1DM -11/13 glucose is 540, then at 1606 was 105 (fasting) and after dinner POC glucose was 212. -11/13 VBG is 7.22, then at 1606 was 7.25. -11/13 Anion gap at admission was 21. Then at 1606 was 6. -11/13 Phosphorus was 4.0 at admission, then at 1606 was 3.5. -Closely monitored K levels. -Insulin bolus administered in ER -Insulin drip 7.4 units/hr with NSS. -Once glucose goal was <250 and anion gap is closed switched from IV insulin into insulin pump (this happened at around 1650) -NSS 250ml/hr with 20mEq K per liter. Once glucose was <250, switched NSS to D5+NSS with 20mEq K per liter. -Patient had one hypoglycemic event at 1711 which she was given 25g of dextrose. Glucose went back up to 137. -Checked BMP, venous pH, phosphorus, glucose every 4 hours. -Ordered CBC w/ diff and A1c for the AM. Patient discharged tonight so wont get those labs. -Hypoglycemia protocol was put in place * dextrose 50% 25-50mL * Glucagon 1mg SQ * Carbohydrates 15-30mg * Glucose chew table tablet (4-8 tabs) Hypothyroidism -Continue home levothyroxine 375mg Back Pain -Patient has general back pain, back of the neck and shoulder blades -ER gave morphine 2mg Q15 minutes PRN. -Will give tylenol 650mg PRN for mild pain -Will continue Q15m morphine for severe pain. Leukocytosis -WBC is 16.98. But most likely due to the stress of the DKA -Will continue to monitor Total Time Total Time Spent Total Time Spent (In Minutes): Less than 30 Discharge Plan Discharge Items Patient Disposition: Home - Self-Care Reason For Visit: DKA Discharge Diagnosis: DKA Condition on Discharge: Good Activity: Resume your previous activity Non-emergency contact: Primary Care Provider Call non-emergency contact if: your symptoms worsen and your temperature is above 101.5 Follow-up/Referrals: Sabrina Aguilar CRNP [Primary Care Provider] - Diet: Carb Count or DM1 Addtl Attending Provider Instructions: You presented into the hospital this morning with DKA (diabetic ketoacidosis) where your blood sugar is high causing the blood in your body to become acidic. This made you feel thirsty and caused you to urinate more causing you to be dehydrated. We gave IV insulin and fluids to help lower your blood sugar, stop your blood from being acidic, and to rehydrate you. For your back, upper neck, and shoulder blade pain we gave some Tylenol and morphine to help with your pain. Your white blood cell count was also elevated but that is most likely due to the DKA and stress. Please continue to take your home medication of insulin when you get home, along with drinking plenty of water. Please still go to your appointment with Dr. Pham, your yard hostler, and go over your insulin pump (if it needs to be replaced) and what happened this weekend. Also, please see your PCP in 1-2 weeks to go over your hospital stay. It was a pleasure to treat you here at [facility] Medications: -Continue all home medications as prescribed Pending Studies at Discharge: No Stand-Alone Forms: My [facility], Smoking Cessation Medications and DC Order Prescriptions: Continued (DME) Dexcom G6 Batterboard Setter Misc See Rx Instructions .ROUTE .MEDSUPPLY Qty: 1 0RF Rx Instructions: For use with Dexcom G6 system cholecalciferol (vitamin D3) 1,250 mcg (50,000 unit) tablet 50,000 unit PO DAILY Qty: 30 1RF Patient Comments: before lunch (DME) Dexcom G6 Sensor Device See Rx Instructions .ROUTE .MEDSUPPLY Qty: 9 3RF Rx Instructions: Change sensor every 10 days (DME) Dexcom G6 Transmitter Device See Rx Instructions .ROUTE .MEDSUPPLY Qty: 1 3RF Rx Instructions: Change every 90 days insulin lispro 100 unit/mL solution 100 unit continuous subcutaneous infusion DAILY Qty: 90 3RF Patient Comments: recently got a new pump, unsure basal rate. (DME) Ketostix Strip See Rx Instructions .ROUTE .MEDSUPPLY Qty: 25 5RF Rx Instructions: as needed for elevated bs timolol maleate 0.5 % drops 1 drp ophthalmic (eye) DAILY Patient Comments: left brimonidine 0.2 % drops 1 drp ophthalmic (eye) HS PRN (Reason: eye pressure) Patient Comments: left eye (DME) Contour Next Test Strips Strip See Rx Instructions .Route Qty: 100 11RF Rx Instructions: test blood sugars three times a day ferrous sulfate 325 mg (65 mg iron) tablet 325 mg PO DAILY Qty: 30 0RF levothyroxine 300 mcg tablet 375 mcg PO DAILY glucagon HCl [Glucagon (HCl) Emergency Kit] 1 mg recon soln 0 mg subcut UD PRN (Reason: hypoglycemia) Patient Comments: never used Selsun Blue 1 % shampoo 1 applic topical DAILY PRN (Reason: Itching) Rx Instructions: massage into affected area; leave on for 10 mins ; rinse off thoroughly citalopram 20 mg tablet 20 mg PO DAILY Rx Instructions: orally daily; take 20 mg (1 tab) for 2 weeks then increase to 40 mg (2 tabs) daily Discharge Orders: Discharge Order (Routine); Ordered 11/13/24 Ordered By: Osmin Albert Admission Data Admit Date/Time: 11/13/24 10:00 Attending Provider: Ganesh Lin Admit Provider: Osmin Albert Primary Care Provider: Sabrina Aguilar Other Providers: Abrahan Valenzuela Supervising Physician Co-Signing Physician Notes I personally examined the patient and verified all granger points of history and exam, discussed case, and agree with decision making with Dr Albert as the day progressed, she continued to feel better and better. Pain resolved. She felt good, gap closed, sugars fell in line. She was able to resume her pump and it was workingate a baked potato and some ground beef, postprandial glucose 212. Would very much like to go home. DKAresolved. Safe/stable for home. Otherwise as above. Resident Activity Tracking Resident Involvement: Resident Care Provided Care Provided: Adult Hospital Medicine
[2024-11-13] MEDS: INSULIN ASPART PER UNIT CHARGE SC SCH (18:17)
[2024-11-13 18:18] VITALS: RESP 22; O2SAT 96
--- NOTE | 2024-11-13 18:46 | Billing Data ---
Date of Service November 13, 2024 Coding Level of Care Code 41764 IN/OBS DISCH 30 MIN/LESS
[2024-11-13 19:14] VITALS: BP 97/63; PULSE 83
[2024-11-14] MEDS ORDERED: LEVOTHYROXINE SODIUM 125 MCG TABLET PO SCH (06:30)
--- NOTE | 2024-11-15 13:17 | Electrocardiogram Report ---
Test Reason : Blood Pressure : */* mmHG Vent. Rate : 81 BPM Atrial Rate : 81 BPM P-R Int : 124 ms QRS Dur : 66 ms QT Int : 372 ms P-R-T Axes : 15 44 36 degrees QTcB Int : 432 ms Normal sinus rhythm Low voltage QRS Nonspecific ST abnormality Abnormal ECG No previous ECGs available Confirmed by Iain Ha ([id number]) on 11/15/2024 1:17:38 PM Referred By: REFERRED SELF Confirmed By: Iain Ha
== END 2024-11-13 20:49 | disposition home or self-care (01) | DRG 639 ==
LOC: ED 07:14 → INTOOBSV 10:00 → EDINP 10:00